=== PATIENT | male | born 1995 | race African-American/Black ===

== ENCOUNTER 2023-01-12 03:55 | Emergency (ER) | payer OTHER ==
[~2023-01-12] VITALS: Ht 170.2 cm; Wt 73.5 kg
[2023-01-12] MEDS ORDERED: BICT1TAB PO (04:09)
--- NOTE | 2023-01-12 04:18 | NUR ---
Patient given written and verbal discharge instructions. Patient verbalizes understanding of instructions. Patient is ambulatory with steady gait. Refuses offer of skilled nursing placement. Patient given list of available shelters in surrounding area. Patient is a/ox4, NAD noted.
[2023-01-12 04:26] VITALS: BP 127/62
== END 2023-01-12 04:59 | disposition home or self-care (01) ==
LOC: ER 04:03
DX: F41.9 Anxiety disorder, unspecified (principal); F17.210 Nicotine dependence, cigarettes, uncomplicated; Z71.6 Tobacco abuse counseling; Z79.899 Other long term (current) drug therapy
CPT/HCPCS: A4663